=== PATIENT | female | born 1980 | race Caucasian/White ===

== ENCOUNTER 2019-01-30 22:35 | Emergency (ER) | payer SELFPAY ==
[~2019-01-30] VITALS: Ht 162.6 cm; Wt 74.7 kg
[2019-01-30 23:11] VITALS: BP 139/65; PULSE 101; RESP 16; Ht 162.6 cm; Wt 74.7 kg
== END 2019-01-31 00:10 | disposition left against medical advice (07) ==
LOC: FTE 22:35
DX: Z53.21 Procedure and treatment not carried out due to patient leaving prior to being seen by health care provider (principal)